=== PATIENT | male | born 1940 | race Caucasian/White ===

== ENCOUNTER → 2022-02-08 | Outpatient (CLI) | payer MEDICARE, BC ==
--- NOTE | 2022-02-08 15:14 | RAD ---
EXAMINATION: Left lower extremity duplex venous ultrasound. TECHNIQUE: DVT protocol. Multiple sonographic images with color Doppler and waveform interrogation we re performed of the left lower extremity veins with compression and augmentation maneuvers. INDICATION: 81 years Male, left CALF PAIN, SWELLING, LT KNEE REPLACEMENT 6 WEEKS AGO PT ON BLOOD THI NNERS . FINDINGS: The left lower extremity veins from the groin to below the knee veins were examined with no rmal color-flow, compressibility and waveform demonstrated. The peroneal veins are not well visualize d. Slightly prominent lymph node the in the left groin measuring in short axis I cm with prominent fat h ilum suggestive of benign reactive nodes. IMPRESSION: No evidence of DVT in the left lower extremity. Electronically signed by: Jayce Hawley MD (02/08/2022 3:11 PM) [id number]
== END ==
LOC: US 14:30
PROVIDERS: ATTEND Physician Assistant
DX: M79.662 Pain in left lower leg (principal); M79.89 Other specified soft tissue disorders; Z98.890 Other specified postprocedural states
CPT/HCPCS: 93971